=== PATIENT | male | born 1990 | race Caucasian/White ===

== ENCOUNTER 2017-08-15 18:23 | Emergency (ER) | payer BC ==
[~2017-08-15] VITALS: Ht 182.9 cm; Wt 81.6 kg
[2017-08-15 18:26] VITALS: BP 120/80
[2017-08-15] MEDS ORDERED: Morphine Sulfate 4mg/ml Inj IVP ONE (18:45)
[2017-08-15] MEDS ORDERED: oxyCODONE HCL/Acetaminophen 5/325mg ORAL ONE (18:45)
[2017-08-15 19:10] VITALS: BP 132/72
[2017-08-15] MEDS ORDERED: Ketamine HCl 100mg syr IV ONE (19:15)
[2017-08-15] MEDS ORDERED: HYDROmorphone 1mg/ml Carpuject IVP ONE (19:15)
--- NOTE | 2017-08-15 19:44 | Emergency Room Report ---
History of Present Illness General Chief Complaint: Seizure Source: Patient, EMS Present Illness HPI 27YOM BIBEMS with witnessed tonic-clonic seizure Unknown duration Was not given any meds from EMS - is post-ictal No history of seizures or other medical problems Patient also with left shoulder pain Not c/o headache, neck pain Allergies: Coded Allergies: No Known Allergies (Unverified , 08/15/17) Patient History Past Medical History: none Past Surgical History: none Pertinent Family History: none Social History: Denies: smoking, alcohol use, drug use Immunizations: UTD Reviewed Nursing Documentation: PMH: Agreed, PSxH: Agreed Review of Systems All Other Systems: negative except mentioned in HPI Physical Exam Vital Signs Date Time Temp Pulse Resp B/P (MAP) Pulse Ox O2 Delivery O2 Flow Rate FiO2 08/15/17 18:19 98.1 120 18 120/80 98 Room Air Sp02 EP Interpretation: reviewed, normal General Appearance: normal inspection, well appearing, no apparent distress, alert, GCS 15, non-toxic, Postictal Head: normocephalic, atraumatic Eyes: bilateral eye PERRL, bilateral eye EOMI ENT: normal ENT inspection, hearing grossly normal, normal voice Neck: normal inspection, full range of motion, supple, no bony tend Respiratory: normal inspection, lungs clear, normal breath sounds, no respiratory distress, no retraction, no wheezing Gastrointestinal: normal inspection, normal bowel sounds, non tender, soft, no guarding, no hernia Musculoskeletal: normal inspection, back normal, normal range of motion, Celia' s Sign negative, other - Left shoulder: obvious loss of normal rounded contour of left shoulder. Unable to raise shoulder above horizon Neurologic: normal inspection, alert, oriented x3, responsive, engineer sergeant III-XII nml as tested, speech normal Psychiatric: normal inspection, judgement/insight normal, mood/affect normal Skin: normal inspection, normal color, no rash Procedures Joint Reduction Joint Reduction : Consent: Written Joint Reduction Site: shoulder (L) Procedural Sedation: No Reduction Attempts: One Pre-Procedure NV Exam: Yes Post-Procedure NV Exam: Yes Post Joint Reduction Film: joint reduced Patient Tolerated: Well Complications: None Progress Patient positioned supine Left arm bent at elbow with tension applied downward into upper arm and elbow rotated outward and then left arm extended straight out with counter-traction pulled by tech Obvious reduction with improved to normal rounded contour of left shoulder with immediate relief of patient's pain Placed in shoulder immobilizer post-reduction films ordered Medical Decision Making Diagnostic Impression: Primary Impression: Epileptic seizure, generalized Additional Impression: Closed dislocation of left shoulder Qualified Codes: S43.005A - Unspecified dislocation of left shoulder joint, initial encounter ER Course VSS. Afebrile New onset seizure: no previous seizure. No additional seizures here Was given IV morphine for pain i was able to reduce anterior shoudler dislocation without procedural/moderate sedation Repeat xray shows reduction of dislocation Advised keeping immobilizer on until f/up with ortho Advised PMD/Neurology followup for new onset seizure CT head no mass, SARA, shift, CVA Left shoulder ED review 2 views Anterior left shoulder dislocation, no acute fx or soft tissue injury Left shoulder ED review 2 views S/p interval reduction of left shoulder anterior dislocation. No acute fx or soft tissue injur Last Vital Signs Date Time Temp Pulse Resp B/P (MAP) Pulse Ox O2 Delivery O2 Flow Rate FiO2 08/15/17 18:49 98.0 08/15/17 18:26 18 120/80 98 Room Air 08/15/17 18:26 120 Status: improved Disposition: HOME, SELF-CARE ORVILLE BARRERA M.D. Aug 15, 2017 19:44
[2017-08-15 20:30] VITALS: BP 125/78
[2017-08-15 21:30] VITALS: BP 125/78
--- NOTE | 2017-08-16 10:55 | Diagnostic Imaging Report ---
Indication: Headache Technique: Contiguous 5 mm thick transaxial imaging of the head obtained in a Siem[employer] Sensation [address] scanner. Soft tissue and bone windows generated. Total Dose length Product (DLP): [address] Dose Index Volume (CTDIvol): 70.38, 0.15 mGy Comparison: none Findings: The size and configuration of the cortical sulci, basal cisterns, and ventricles are within normal limits for age. There is no mass effect, midline shift, or edema identified. There is no evidence of acute hemorrhage or abnormal intra-axial or extra-axial fluid collections. The bones and soft tissues are unremarkable. Impression: No mass effect, edema or acute bleed. The CT scanner at [facility] is accredited by the [employer] and the scans are performed using dose optimization techniques as appropriate to a performed exam including Automatic Exposure control.
--- NOTE | 2017-08-16 12:38 | Diagnostic Imaging Report ---
Indication: ] Status post closed reduction Comparison: 2 hours earlier Findings: 3 views of the left shoulder were obtained. There is a fracture of the greater tuberosity again noted. Alignment of the glenohumeral joint is normal following reduction. Impression: Successful reduction. Fracture of the greater tuberosity again noted.
--- NOTE | 2017-08-16 12:48 | Diagnostic Imaging Report ---
Indication: Pain Findings: 3 views of the left shoulder were obtained. Anterior dislocation of the right humeral joint demonstrated. There is a prominent Hill-Sachs deformity or greater tuberosity fracture. Impression: Anterior dislocation. Prominent Hill-Sachs deformity
== END 2017-08-15 21:30 | disposition home or self-care (01) ==
LOC: EDBD 18:23 → EMR 19:00
DX: G40.409 Other generalized epilepsy and epileptic syndromes, not intractable, without status epilepticus (principal); S43.005A Unspecified dislocation of left shoulder joint, initial encounter; X58.XXXA Exposure to other specified factors, initial encounter; Y93.9 Activity, unspecified; Y99.9 Unspecified external cause status
CPT/HCPCS: 23650; 70450; 73030; 96374; 96375; 99284; J2270